=== PATIENT | female | born 1945 | race Caucasian/White ===

== ENCOUNTER 2024-12-22 10:59 | Emergency (ER) | payer MEDICARE, MEDICAID, SELFPAY ==
[2024-12-22] VITALS (10 sets, daily range): BP systolic 100–155; BP diastolic 56–96; PULSE 85–152; RESP 15–21; TEMP 36.4–37.1; O2SAT 86–97; BMI 18.7
--- NOTE | 2024-12-22 | XR_ITS ---
Examination: MRI brain without intravenous contrast. Date and time of exam: December 22, 2024 1513 hours INDICATIONS: Left facial droop beginning yesterday Technique: Multiple axial and sagittal images of the brain obtained. Siemens high-resolution 1.5 Lor short bore scanners utilized. Sagittal sections, T1-weighted, TR 500, TE 14, are performed. Axial sections proton-density and T2-weighted have been obtained. Inversion recovery axial images, TR 9, 260, TE 111, TI 2500. Diffusion weighted images, axial sections, TR 4800, TE 128, B value 1000 Axial sections, ADC map, TR 4800, TE 128 Findings: Enlargement of the sella turcica is not present. The optic chiasm and infundibular are not remarkable. Prepontine and interpeduncular cisterns are not enlarged. There is no localized enlargement of the medulla or sierra. Fourth ventricle and cerebellar tonsils appear normal in position. No subacute area of hemorrhage density is seen. Mass in the cerebellopontine angle region is not evident. Globes symmetrical. Orbital musculature including medial lateral rectus muscles do not exhibit abnormality. Diffusion-weighted images demonstrate no focus of restricted diffusion. Increased white matter signal prominent Mass effect upon the ventricular system is not identified. Impression: Negative for acute hemorrhage mass effect or midline shift No acute infarct Prominent chronic microvascular white matter change
--- NOTE | 2024-12-22 11:35 | XR_ITS ---
Examination: CT abdomen and pelvis without contrast. Coronal 3-D reconstructions. Sagittal 2-D reconstructions. Date and time of exam:December 22, 2024 12 noon INDICATIONS: Abdominal pain and distention beginning today CTDI: vol (mGy): 5.06 DLP: (mGycm): 254 Technique: Axial images of the abdomen have been obtained, 3 mm slice thickness Intravenous contrast material has not been administered. Low dose protocols were performed. One or more of the following dose reduction techniques were used; automated exposure control, adjustment of the mA and/or KV according to patient size, use of iterative reconstruction technique. Findings: Anterior pericardial effusion measuring 6 mm Small bilateral pleural effusions Atelectasis left lower lobe Massive ascites Liver decreased in size Spleen is not enlarged Gallbladder wall is calcified No definite pancreatic mass Mild bilateral hydronephrosis Fluid distended small bowel loops Large solid right pelvic abdominal mass with irregular margins measuring at least 9 x 10 cm with anterior left pelvic solid mass 6.2 x 5.8 cm Colonic diverticulosis Urinary bladder intact Advanced degenerative disc disease lower 3 lumbar levels IMPRESSION: Massive likely malignant ascites Large solid pelvic tumor masses, recommend transabdominal transvaginal pelvic sonography follow-up
--- NOTE | 2024-12-22 11:35 | XR_ITS ---
Examination: CT brain head without contrast. 2-D sagittal coronal reconstructions Date and time of exam:December 22, 2024 1157 hours INDICATIONS: Altered mental status beginning last night CTDI: vol (mGy):41.7 DLP: (mGycm):783 Technique: Multiple CT axial sections of the brain have been obtained, 5 mm slice thickness. Contrast has not been administered. 2-D sagittal, coronal reconstructions have been obtained Low dose protocols were performed. One or more of the following dose reduction techniques were used; automated exposure control, adjustment of the mA and/or KV according to patient size, use of iterative reconstruction technique. Findings: No significant ventricular enlargement. Intra-axial or extra-axial hemorrhage density is not seen. No mass effect or midline shift Basal cisterns are not remarkable. Fourth ventricle is midline. Cranial vault intact. Impression: Negative for acute hemorrhage, mass effect or midline shift Advise clinical correlation follow-up accordingly
--- NOTE | 2024-12-22 11:35 | PD.EDRME ---
Rapid Medical Screening Exam RME Arrival date/time: 12/22/24 10:59 79-year-old female with history of stroke and hypertension presents emergency department today with family member who reports abdominal distention. Per the family member the patient speech is been off since the of last month reports she believes the patient may have a facial droop since yesterday Chief Complaint: Neuro Symptoms/Deficit
[2024-12-22 12:18] LABS: Basophils % (Auto) 0 % (0-2.5); Eosinophils # (Auto) 0.1 Thou/mm3 (0.0-0.5); Eosinophils % (Auto) 1 % (0-10); Hematocrit 36.9 % (36.0-46.0); Hemoglobin 11.4 g/dL (12.0-16.0); Immature Granulocytes % (Auto) 1 % (0-0); Lymphocytes # (Auto) 0.8 Thou/mm3 (1.0-4.8); Lymphocytes % (Auto) 6 % (10-50); Mean Corpuscular HGB Conc 30.9 g/dl (31.0-37.0); Mean Corpuscular Hemoglobin 24.8 pg (25.0-35.0); Mean Corpuscular Volume 80 fL (80-100); Monocytes # (Auto) 0.5 Thou/mm3 (0.0-0.8); Monocytes % (Auto) 4 % (0-12); Neutrophils # (Auto) 11.5 Thou/mm3 (1.8-7.7); Neutrophils % (Auto) 88 % (37-80); Nucleated Red Blood Cell % 0 /100 WBC (0); Platelet Count 514 Thou/mm3 (140-440)
--- NOTE | 2024-12-22 12:31 | EDNOTE_ITS ---
Neuro Symptoms Deficit-RME/HPI General Chief Complaint: Neuro Symptoms/Deficit Stated Complaint: I THINK SHE HAD ANOTHER STROKE, LKW AT 2200 YEST Time Seen by Provider: 12/22/24 12:25 Arrival date/time: 12/22/24 10:59 79 year old female with past medical history of DM, HTN, HDL, CVA present to emergency room with daughter with multi complaints. per daughter report possible stroke Dec 01, 2024 and yesterday. Daughter also report abdominal swelling and talking less since Dec 01 2024. Eating less ( losing weight) , urinating and BM normal. Pt denies any abd pain, did have a vomiting episode 3 days ago that since resolved. LOCATION: stomach SEVERITY: Symptoms are described as being severe with limitations on activities of daily living CONTEXT: The patient is unable to identify any inciting events. DURATION/TIMING: The symptoms started approximately 1 month, and worsen yesterday ASSOCIATED SYMPTOMS: The patient is unable to identify any other associated symptoms. MODIFYING FACTORS: The patient is unable to identify any alleviating or aggravating symptoms. PERTINENT ROS: no fevers, no cough, no pleuritic pain, no ripping or tearing sensations, denies any lower extremity edema and no unilateral swelling, no chest pain/shortness of breath no diarrhea, no dizziness/headache no rash no l oc/syncope episode no abd/back pain no dsyuria,urgency,frequency REVIEW OF SYSTEMS: See History of Present Illness - with the exception of those mentioned in the history of present illness, all other systems reviewed and reported as negative GENERAL: In general the patient is awake, interactive, in an emergency department gurney. Frail individaul HEAD/EYES/EARS/NOSE/THROAT: normo-cephalic, atraumatic, mucus membranes are moist, anicteric, palpebral conjunctiva is pink, trachea is midline. CARDIOVASCULAR: regular rate and regular rhythm, no murmurs, heart sounds are not distant, strong pulses in all four extremities that are equal and symmetric bilateral upper and lower extremities, normal capillary refill. CHEST/PULMONARY: normal chest rise and fall, good air movement, clear to auscul tation bilaterally, normal inspiratory to expiratory ratios without evidence of respiratory distress. NECK: No midline/Paraspinal tenderness, no step off ROM/Strenght intact No Kernig and bruzinski sign. No trauma ABDOMEN: soft, not tender,+ ascites no masses appreciated BACK: normal range of motion without pain. NEUROLOGICAL: cranio-facial features are symmetric, moves all four extremities equally without obvious limitations or weakness. EXTREMITY: no tenderness to palpation over the long bones or large joints of the bilateral upper and lower extremities, no joint swelling, no joint erythema, no signs of trauma, no unilateral leg swelling and no peripheral edema. SKIN: warm, dry, well-perfused, no jaundice, no rash, no telangiectasias or petechia. PSYCH: calm, cooperative, no evidence of psychosis or agitation RME / HPI RME / HPI Narrative: 12/22/24 10:59 79-year-old female with history of stroke and hypertension presents emergency department today with family member who reports abdominal distention. Per the family member the patient speech is been off since the of last month reports she believes the patient may have a facial droop since yesterday Related Data Home Medications ?Medication ?Instructions ?Recorded ?Confirmed atorvastatin 40 mg tablet 40 mg PO HS 01/11/22 5 clopidogrel 75 mg tablet 75 mg PO DAILY circulation 0 01/11/22 12/22/24 losartan 100 mg tablet 100 mg PO QDAY 01/11/2212/13 aspirin 81 mg chewable tablet 81 mg PO QDAY 01/13/22 0 12/22/24 metformin 500 mg tablet 500 mg PO HS 12/22/24 Allergies Allergy/AdvReac Type Severity Reaction Status Date / Time No Known Allergies Allergy Verified 12/22/24 11:04 Course Course Course Narrative: DISPOSITION: Emergency Department nursing documentation was reviewed including triage complaint, associated symptoms, administration of medications, response to therapy and vital signs. Given the history, physical exam, and review of laboratory and imaging studies the patient is determined to be unsafe for discharge and requires higher level of care. For this reason the patient is being transferred to [[facility]) for further diagnostic tests, treatments, stabilization, and monitored response to therapy. I communicated the history, physical exam, pertinent laboratory and imaging studies to the accepting physician. Electronic copies of all emergency department laboratory testing and imaging studies as well as medications ordered and administered are being sent with the patient. Quality Measures none Orders Category Date Time Status EKG (ED ONLY) *Do not use* NOW Care 12/22/24 12:42 Completed MRI Screening NOW Care 12/22/24 12:46 Active Referral - Union Organiser Stat Cons 12/22/24 17:[address] abdomen pelvis wo con Stat Exams 12/22/24 11:[address] head/brain wo con Stat Exams 12/22/24 11:35 Completed EKG (ED Only) Stat Exams 12/22/24 12:42 Draft MR head/brain wo con Stat Exams 12/22/24 Completed US abdomen limited Stat Exams 12/22/24 13:00 Completed US transvaginal Stat Exams 12/22/24 12:58 Completed CBC Stat Lab 12/22/24 11:46 Completed Comprehensive Metabolic Panel Stat Lab 12/22/24 11:46 Completed INR [Prothrombin Time with INR] Stat Lab 12/22/24 11:46 Completed Lipase Stat Lab 12/22/24 11:46 Completed PTT [Partial Thromboplastin Time] Stat Lab 12/22/24 11:46 Completed Troponin I Stat Lab 12/22/24 11:46 Completed UA, C/S IF [Urinalysis, C/S if Indicated] Stat Lab 12/22/24 11:35 Ordered Calcium Chloride 10% Abboject Med 12/22/24 16:32 Discontinued 10 ml IV X1 ONE Calcium Gluconate 10% Inj Med 12/22/24 16:34 Discontinued 1 gm IV X1 ONE HYDROcodone*/APAP 5/325 [[place] 5/325] Med 12/22/24 22:22 Discontinued 1 tab PO X1 ONE Ondansetron Odt [Zofran Odt] Med 12/22/24 22:22 Discontinued 4 mg PO X1 ONE Sodium Chloride 0.9% 1000 ml [Ns] 1,000 ml Med 12/23/24 06:06 Discontinued IV 999 mls/hr metFORMIN [Glucophage] Med 12/23/24 01:17 Discontinued 500 mg PO X1 ONE Reevaluation(s) Reevaluation #1: pt is in room comfortable in room and agreeable with treatment and plan. pending transfer. per nurse no paracentesis has not been done. Reevaluation #2: 2027 [facility] with [facility] will tried konrad souza and will call back Reevaluation #3: 2221 spoke with daughter local hospital has decline patient. will attempt to go further away to request transfer. daughter agreeable. Vital Signs Vital signs: Vital Signs Temperature 98.5 F 12/22/24 11:36 Pulse Rate 105 H 12/22/24 11:36 Respiratory Rate 18 12/22/24 11:36 Blood Pressure 100/63 12/22/24 11:36 Pulse Oximetry (%) 97 12/22/24 11:36 Oxygen Delivery Method Room Air 12/22/24 11:36 Procedures -ED EKG Interpretation #1: Date of EK12/22/24 Rate: 96 Interpretation: Reviewed by me EKG Impression: Normal sinus rhythm, Tina deviation, No acute ST-T changes and No ischemic changes Neuro Symptoms / Deficit Patient data External records reviewed:: [facility] previous records Clinical information provided by:: family Social determinants that could affect healthcare access:: none Patient has the following chronic illnesses:: as stated above How is presenting disease/condition affected by chronic disease/condition?: exacerbated by Evaluation data The following diagnostics were reviewed and interpreted by me:: lab results, radiology exam(s) and EKG tracing(s) Lab and/or radiology exams considered but not ordered:: n/a Interpretation Summary: CT Head: No significant ventricular enlargement. Intra-axial or extra-axial hemorrhage density is not seen. No mass effect or midline shift Basal cisterns are not remarkable. Fourth ventricle is midline. Cranial vault intact. Impression: Negative for acute hemorrhage, mass effect or midline shift Advise clinical correlation follow-up accordingly CT abd: Anterior pericardial effusion measuring 6 mm Small bilateral pleural effusions Atelectasis left lower lobe Massive ascites Liver decreased in size Spleen is not enlarged Gallbladder wall is calcified No definite pancreatic mass Mild bilateral hydronephrosis Fluid distended small bowel loops Large solid right pelvic abdominal mass with irregular margins measuring at least 9 x 10 cm with anterior left pelvic solid mass 6.2 x 5.8 cm Colonic diverticulosis Urinary bladder intact Advanced degenerative disc disease lower 3 lumbar levels IMPRESSION: Massive likely malignant ascites Large solid pelvic tumor masses, recommend transabdominal transvaginal pelvic sonography follow-up cbc 13k + anemia, plt 512, cmp k 5.9, Bun/Creat elevated trop: .047 US: IMPRESSION: Large solid right adnexal tumor mass 14.8 x 10.0 x 13.6 cm Recommend MRI pelvis follow-up pre and postcontrast MRI: Impression: Negative for acute hemorrhage mass effect or midline shift No acute infarct Prominent chronic microvascular white matter change Medications / Prescriptions Medications or Prescriptions considered but not ordered:: n/a Medication administrations:: Medication Administration History Discontinued Medications Hydrocodone Bitart/Acetaminophen (Hydrocodone/Apap 5/325 Tablet) 1 tab PO X1 ONE Stop: 12/22/24 22:23 Last Admin: 12/22/24 22:47 Dose: 1 tab Documented By: BOB Calcium Chloride (Calcium Chloride 10% Inj 10 Ml Syrg) 10 ml IV X1 ONE Stop: 12/22/24 16:33 Last Admin: 12/22/24 17:19 Dose: Not Given Documented By: SABINE Non-Admin Reason: Cancelled by Provider Calcium Gluconate (Calcium Gluconate 10% Inj 1 Gm/10 Ml Vial) 1 gm IV X1 ONE Stop: 12/22/24 16:35 Last Admin: 12/22/24 17:19 Dose: 1 gm Documented By: SABINE Sodium Chloride (Ns) 1,000 mls @ 999 mls/hr IV .Q1H1M ONE Stop: 12/23/24 07:06 Last Admin: 12/23/24 06:26 Dose: 999 mls/hr Documented By: KG Metformin HCl (Metformin 500 Mg Tablet) 500 mg PO X1 ONE Stop: 12/23/24 01:18 Last Admin: 12/23/24 02:17 Dose: 500 mg Documented By: BOB Ondansetron HCl (Ondansetron Odt 4 Mg Tabrap) 4 mg PO X1 ONE; Protocol Stop: 12/22/24 22:23 Last Admin: 12/22/24 22:47 Dose: 4 mg Documented By: BOB n/a Consultations Consultation(s) initiated? (list below): Yes Consultation #1 (Physician, Specialty, Details): call out to hospitalist for admission. spoke with resident. will be transfer patient due to Dr. Odell Tangled Yarn Spool Straightener/OB unable to stage the cancer, need exploratory surgery, chemo or radiation. Consultation #2 (Physician, Specialty, Details): 1650 call out to transfer center Diagnosis Neuro Differential Diagnosis: delirium, subarachnoid hemorrhage (mass), cerebrovascular accident, transient cerebral ischemia and other (dehydration, gi bleed, liver cirosis, sbo, colitis constipation ) Most likely diagnosis given after review of the tests above:: Pelvic Mass Admission Indicated Admission indicated?: not indicated Admission Request Was there a request for admission?: No Disposition Plan Disposition Plan: Transfer Discharge Plan Plan Patient Disposition: [facility] Facility Pt Being Transferred to: [facility] Prescriptions/Referrals Prescriptions/Med Rec: No Action atorvastatin 40 mg tablet 40 mg PO HS Patient Comments: TAKE ONE TABLET BY MOUTH EVERY DAY FOR CHOLESTEROL clopidogrel 75 mg tablet 75 mg PO DAILY Patient Comments: TAKE ONE TABLET BY MOUTH EVERY DAY losartan 100 mg tablet 100 mg PO QDAY Patient Comments: TAKE ONE TABLET BY MOUTH EVERY DAY aspirin 81 mg tablet,chewable 81 mg PO QDAY Patient Comments: CHEW ONE TABLET BY MOUTH EVERY DAY metformin 500 mg tablet 500 mg PO HS Patient Comments: TAKE 1 TABLET BY MOUTH EVERY NIGHT FOR DIABETES Problem List Clinical Impression: Neoplasm of pelvic bone, Non-ST elevation DC (NSTEMI), Acute hyperkalemia, Abdominal ascites, Acute kidney injury, Dehydration Patient/Caregiver Discharge Instructions Print Language: Nepali Stand Alone Forms: Marisel Award Info., Patient Portal Info Letter
[2024-12-22 12:36] LABS: Alanine Aminotransferase 12 U/L (10-49); Albumin, Serum 3.8 gm/dL (3.4-4.8); Albumin/Globulin Ratio 1.2 (1.2-2.2); Alkaline Phosphatase 111 U/L (46-116); Anion Gap 7 (7-16); Aspartate Amino Transferase 21 U/L (0-34); BUN/Creatinine Ratio 42 Ratio (12-20); Bilirubin,Total 0.4 mg/dL (0.3-1.2); Blood Urea Nitrogen 59 mg/dL (9-23); Calcium 8.8 mg/dL (8.3-10.6); Chloride 105 mMol/L (98-107); Creatinine (Component) 1.4 mg/dL (0.6-1.3); Estimated Creatinine Clearance 22.8 mL/min (>60); Globulin 3.1 gm/dL (2.3-3.5); Glucose 120 mg/dL (74-106); Lipase 128 U/L (12-53); Osmolality,Calculated 283 (275-295); Potassium 5.9 mMol/L (3.4-5.1); Sodium 133 mMol/L (136-145); Total Protein 6.9 gm/dL (5.7-8.2); eGFR 39 See Note
[2024-12-22 12:38] LABS: Troponin I 0.047 ng/mL (0.0-0.045)
--- NOTE | 2024-12-22 12:42 | EKG_ITS ---
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
--- NOTE | 2024-12-22 12:58 | XR_ITS ---
Examination: Transvaginal ultrasound of the pelvis, complete Technique: Transvaginal sonographic images pelvis performed using bowen scale imaging Exam date and time: December 22, 2024 1438 hours INDICATIONS: Abdominal distention today pelvic pain FINDINGS: Uterus 8.5 x 3.7 x 4.4 cm No uterine mass Endometrial stripe 0.7 cm Right ovary obscured by bowel gas, right adnexal mass 4.8 x 10.0 x 13.6 cm Left ovary obscured by bowel gas. IMPRESSION: Large solid right adnexal tumor mass 14.8 x 10.0 x 13.6 cm Recommend MRI pelvis follow-up pre and postcontrast
--- NOTE | 2024-12-22 13:00 | XR_ITS ---
Examination: Abdomen sonogram, Limited Date and time of exam: December 22, 2024 1432 hrs. Indications: Abdominal distention and pain today Technique: Real-time bowen scale transabdominal sonographic images of the upper abdomen obtained. Findings: Mild ascitic fluid Impression: Mild ascitic fluid
[2024-12-22 14:58] LABS: Prothrombin Time 10.7 Seconds (9.0-12.2)
--- NOTE | 2024-12-22 15:21 | PC.NURSE ---
pt to MRI
--- NOTE | 2024-12-22 17:09 | PD.GYNCONS ---
HANDICAPPER HARNESS RACING HPI Data of Consult Consult date: 12/22/24 Primary Care Provider: Melvi Trent PA-C Consult Narrative Reason for consult: pelvic pain and pelvic mass History of present illness: The patient is a 79-year-old female who presents to the emergency room with increasing abdominal distention pain and anorexia. Per her daughter the patient has been losing weight. The physicians higher level teaching assistant in the ER called for a Fire Sprinkler Inspector consult to review her imaging in order to see if she should be admitted here or transfer to a higher level of care. After reviewing her labs and imaging I recommend referral to a tertiary care center for specialized treatment in the form of gynecologic oncology. The patient was not seen or examined by myself. I did review her labs and imaging. cc:: cc: Review of Systems Constitutional Constitutional: Reports anorexia, Reports poor appetite, Reports weakness and Reports weight loss Gastrointestinal Gastrointestinal: Reports abdominal pain, Reports bloating and Reports early satiety Neurologic Neurologic: Reports weakness Meds Home Medications and Allergies Home Medications ?Medication ?Instructions ?Recorded ?Confirmed ?Type atorvastatin 40 mg tablet 40 mg DAILY 01/11/22 01/13/22 History clopidogrel 75 mg tablet 75 mg DAILY 01/11/22 01/13/22 History Held on 01/12/22. Instructions: Resume on 01/19/22. Hold for 7 days after discharge. Continue on 01/19/21. Follow up with PCP. losartan 100 mg tablet 100 mg PO QDAY 01/11/22 01/13/22 History aspirin 81 mg chewable tablet 81 mg PO QDAY 01/13/22 01/13/22 History Allergies Allergy/AdvReac Type Severity Reaction Status Date / Time No Known Allergies Allergy Verified 12/22/24 11:04 Exam - HANDICAPPER HARNESS RACING Vital Signs Temp Pulse Resp BP Pulse Ox O2 Del Method 98.7 F 85 15 155/96 H 96 Room Air 12/22/24 16:15 12/22/24 16:15 12/22/24 16:15 12/22/24 16:15 12/22/24 16:15 12/22/24 16:15 HANDICAPPER HARNESS RACING - Results Labs 12/22/24 11:46 12/22/24 11:46 Labs: Short CBC 12/22/24 Range/Units 11:46 WBC 13.0 H (3.6-11.0) Thou/mm3 Hgb 11.4 L (12.0-16.0) g/dL Hct 36.9 (36.0-46.0) % Plt Count 514 H (140-440) Thou/mm3 BMP 12/22/24 11:46 Sodium 133 L Potassium 5.9 H Chloride 105 Carbon Dioxide 21.0 BUN 59 H Creatinine 1.4 H Glucose 120 H Calcium 8.8 Cardiac Enzymes 12/22/24 Range/Units 11:46 Troponin I 0.047 H* (0.0-0.045) ng/mL Liver Function 12/22/24 Range/Units 11:46 Total Bilirubin 0.4 (0.3-1.2) mg/dL AST 21 (0-34) U/L ALT 12 (10-49) U/L Alkaline Phosphatase 111 (46-116) U/L Albumin 3.8 (3.4-4.8) gm/dL Imaging and Cardiology CT scan - abdomen: Status: image reviewed by me Additional comments: CT images and report reviewed revealing abdominal ascites pericardial effusion and large pelvic masses. Suggestive of probable metastatic ovarian cancer. Assessment and Plan Additional Assessment & Plan Additional Plan: Recommend referral to tertiary care center for specialized treatment. The Patient needs a gynecologic oncologist to perform a potential exploratory laparotomy and staging procedure. 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 She needs a tertiary care center. This was explained in detail to the physicians higher level teaching assistant. At this point patient will be transferred to a high higher level of care for specialized oncology treatment.
[2024-12-22] MEDS: CALCIUM GLUCONATE 10% INJ 1 GM/10 ML VIAL IV (17:19)
--- NOTE | 2024-12-22 18:20 | PC.CM ---
1730 received a referral to transfer patient for fireworks inspector/oncology for pelvic tumor.
--- NOTE | 2024-12-22 20:13 | PC.NURSE ---
I PLACED A CALL OUT TO THE [facility] AT THIS TIME AND FAXED OVER A FS. WE ARE PENDING A CALL BACK AT THIS TIME.
--- NOTE | 2024-12-22 21:07 | PC.NURSE ---
[facility] CALLED , NO STORE MANAGEMENT TRAINEE/ONCOLOGY CAPABILITY AT THIS TIME.
--- NOTE | 2024-12-22 21:15 | PC.NURSE ---
I SPOKE WITH BRITTANY FROM [facility] AND THEY DO NOT HAVE EXCHANGE TROUBLE SHOOTER OR ONCOLOGY SERVICES AVAILABLE AT NIGHT.
--- NOTE | 2024-12-22 21:25 | PC.NURSE ---
I SPOKE WITH LEO FROM THE TRANSFER CENTER AND THEY DO NOT HAVE RD PROJECT MANAGER OR ONCOLOGY SERVICES AT THIS TIME.
--- NOTE | 2024-12-22 21:37 | PC.NURSE ---
I FAXED OVER THE PT INFORMATION TO LUKAS THE HS FROM [facility] AT THIS TIME. LUKAS INFORMED ME THAT THEY DO NOT HAVE THE SERVICES CHANNEL MAN AT NIGHT BUT SHE WILL PASS THE PACKET ON TO HER DAY SHIFT TOMORROW..
[2024-12-22] MEDS: ONDANSETRON ODT 4 MG TABRAP PO (22:47)
[2024-12-22] MEDS: HYDROcodone/APAP 5/325 TABLET 1 TAB PO (22:47)
--- NOTE | 2024-12-22 23:06 | PD.EDADDENDU ---
Emergency Room Addendum Addendum Narrative: 2300: Care assumed from Ja Stephen PA-C. Past medical, surgical, social and family history reviewed. Vitals and home medications reviewed. Results and treatment plan discussed. I will assume the care of the patient at this time and will follow the patient, pending possible transfer. Please refer to the emergency department record for history and examination from initial visit. EKG done at 1318, NSR, rate of 96, left axis deviation, RBBB, no ectopy, nonspecific ST abnormalities, no STEMI, according to my interpretation. Patient is awake, follows commands, and is comfortable. She is not in any acute distress. She denies any pain. 0600: Care signed out to Dr. Navarro (emergency physician). Past medical, surgical, social and family history reviewed. Vitals and home medications reviewed. Results and treatment plan discussed. They will assume the care of the patient at this time and will follow the patient, pending transfer.
[2024-12-23] VITALS (8 sets, daily range): BP systolic 107–125; BP diastolic 62–66; PULSE 95–104; RESP 15–18; TEMP 36.4–36.6; O2SAT 93–98
[2024-12-23] MEDS: metFORMIN 500 MG TABLET PO (02:17)
--- NOTE | 2024-12-23 06:11 | PD.EDADDENDU ---
Emergency Room Addendum <Charleen Butcher - Last Filed: 12/23/24 12:45> Addendum Narrative: 0600: Care assumed from Dr. Valentin, the previous shift emergency physician. Past medical, surgical, social and family history reviewed. Vitals and home medications reviewed. I will assume the care of the patient at this time, pending transfer. The patient was placed in ED observation care at 12/23/2024 at 0600 hours. The patient was placed in ED observation care pending transfer. The patients past medical history, social history, and family history were reviewed. The plan of care will include serial examinations. Please refer to the emergency department record for history and examination.? While in ED observation the patient will have access to water, food, and personal hygiene. If the patient takes home medication(s), they will be continued in ED observation. Physical exam by me shows patient under no acute distress at this time. 1030 D/W Dr. Norris electrical installation supervisor/onc [facility]. Accepted for transfer to [facility] ED to ED. 1330: EMS took patient to [facility]. ED observation care ended at this time. Diagnoses: Neoplasm of pelvic bone Non-ST elevation OR (NSTEMI) Acute hyperkalemia Abdominal ascites Acute kidney injury Dehydration <Shannan Navarro MD - Last Filed: 12/23/24 10:38> Addendum Narrative: 0600: Care assumed from Dr. Valentin, the previous shift emergency physician. Past medical, surgical, social and family history reviewed. Vitals and home medications reviewed. I will assume the care of the patient at this time, pending transfer. The patient was placed in ED observation care at 12/23/2024 at 0600 hours. The patient was placed in ED observation care pending transfer. The patients past medical history, social history, and family history were reviewed. The plan of care will include serial examinations. Please refer to the emergency department record for history and examination.? While in ED observation the patient will have access to water, food, and personal hygiene. If the patient takes home medication(s), they will be continued in ED observation. Physical exam by me shows patient under no acute distress at this time. 1030 D/W Dr. Norris electrical installation supervisor/onc [facility]. Accepted for transfer to [facility] ED to ED.
--- NOTE | 2024-12-23 06:20 | PC.NURSE ---
Pt's brief changed and eleazar-care provided. Bigg-vika placed on pt.
[2024-12-23] MEDS: SODIUM CHLORIDE 0.9% 1000 ML 1,000 ML 999 ML IV (06:26)
--- NOTE | 2024-12-23 10:30 | PC.NURSE ---
PATIENT ACCEPTED BY DR ZIMMERMAN AT [facility] ER TO ER, NURSE TO NURSE REPORT [phone]. WILL PUT PACKET TOGETHER AND SET UP TRANSFER.
[2024-12-23 12:37] LABS: Bilirubin,Urine Negative (Negative); Blood,Urine Negative (Negative); Clarity,Urine Clear (Clear/Hazy); Collection Type, Urine Clean Catch; Color,Urine Lt-Yellow (Lt Yel-Yel); Culture Indicated,Urine Not Indicated; Glucose, Urine Negative (Negative); Ketones,Urine Trace (Negative); Leukocyte Esterase,Urine Negative (Negative); Nitrite,Urine Negative (Negative); Protein,Urine 1+ (Neg - Trace); RBC,Urine 3 /hpf (0-3); Specific Gravity,Urine 1.027 (1.001-1.035); Squamous Epithelial Cell,Urine 0 /hpf (0-5); Urobilinogen,Urine Negative mg/dL (0.0-1.0); WBC,Urine 1 /hpf (0-5)
== END 2024-12-23 14:00 | disposition short-term general hospital (02) ==
PROVIDERS: Nurse Practitioner Primary Care; Physician Assistant; Emergency Provider Emergency Medicine; PCP Physician Assistant
DX: D49.2 Neoplasm of unspecified behavior of bone, soft tissue, and skin (principal); I21.4 Non-ST elevation (NSTEMI) myocardial infarction; N17.9 Acute kidney failure, unspecified; E86.0 Dehydration; E87.5 Hyperkalemia; R18.8 Other ascites; I31.39 Other pericardial effusion (noninflammatory); J90 Pleural effusion, not elsewhere classified; J98.11 Atelectasis; I45.10 Unspecified right bundle-branch block; N13.30 Unspecified hydronephrosis; K57.30 Diverticulosis of large intestine without perforation or abscess without bleeding; M51.369 Other intervertebral disc degeneration, lumbar region without mention of lumbar back pain or lower extremity pain; D64.9 Anemia, unspecified; R63.0 Anorexia; E11.9 Type 2 diabetes mellitus without complications; I10 Essential (primary) hypertension; Z68.1 Body mass index [BMI] 19.9 or less, adult; Z86.73 Personal history of transient ischemic attack (TIA), and cerebral infarction without residual deficits; Z75.1 Person awaiting admission to adequate facility elsewhere; Z79.02 Long term (current) use of antithrombotics/antiplatelets; Z79.84 Long term (current) use of oral hypoglycemic drugs; Z79.82 Long term (current) use of aspirin; Z79.899 Other long term (current) drug therapy
CPT/HCPCS: 36415; 70450; 70551; 74176; 76705; 76830; 80053; 81001; 83690; 84484; 85025; 85610; 85730; 93005; 96360; 96361; 99285; J0612; J7030; Q0162; A9270